=== PATIENT | male | born 1950 | race Caucasian/White ===

== ENCOUNTER 2016-11-14 08:01 | Day surgery (SDC) | payer OTHER ==
[~2016-11-14] VITALS: Ht 175.3 cm; Wt 92.5 kg
[~2016-11-14 08:01] MED LIST: ALEVE220 MG PO; CARDIZEM CD,CA240 MG PO; LISINOPRIL20 MG PO; PRADAXA150 MG PO; PRAVASTATIN SOD10 MG PO; ZANTAC150 MG PO
[2016-11-14 08:36] VITALS: BP 208/99
[2016-11-14] MEDS ORDERED: COLACE100 MG PO (11:44)
[2016-11-14] MEDS ORDERED: PERCOCET 5/31 TABLET PO (11:44)
[2016-11-14 13:19] VITALS: BP 169/88
== END 2016-11-14 15:40 | disposition home or self-care (01) ==
LOC: SDC 08:01
PROC: 0YQ50ZZ Repair Right Inguinal Region, Open Approach (ICD-10-PCS; principal; 2016-11-14)
DX: K40.90 Unilateral inguinal hernia, without obstruction or gangrene, not specified as recurrent (principal); I10 Essential (primary) hypertension; K21.9 Gastro-esophageal reflux disease without esophagitis; Z87.891 Personal history of nicotine dependence
CPT/HCPCS: C1781; J0131; J0690; J1100; J1170; J2250; J2405; J3010

== ENCOUNTER 2016-12-26 05:31 | Day surgery (SDC) | payer OTHER ==
[~2016-12-26] VITALS: Ht 177.8 cm; Wt 93.4 kg
[~2016-12-26 05:31] MED LIST changes: +COLACE100 MG PO; +PERCOCET 5/31 TABLET PO; +VIAGRA50 MG PO
[2016-12-26 05:55] VITALS: BP 187/91
[2016-12-26] MEDS ORDERED: PERCOCET 5/31 TABLET PO (09:39)
[2016-12-26] MEDS ORDERED: COLACE100 MG PO (09:39)
[2016-12-26 10:43] VITALS: BP 186/90
[2016-12-26 11:40] VITALS: BP 180/86
[2016-12-26 12:50] VITALS: BP 173/80
== END 2016-12-26 13:10 | disposition home or self-care (01) ==
LOC: SDC 05:31
DX: K43.9 Ventral hernia without obstruction or gangrene (principal); I10 Essential (primary) hypertension; E78.5 Hyperlipidemia, unspecified; I48.91 Unspecified atrial fibrillation; I49.5 Sick sinus syndrome; Z79.02 Long term (current) use of antithrombotics/antiplatelets
CPT/HCPCS: C1781; J0330; J0690; J1100; J1170; J2250; J2405; J3010